=== PATIENT | female | born 1990 | race Caucasian/White ===

== ENCOUNTER 2019-01-25 07:50 | Outpatient (CLI) | payer OTHER | END 2019-01-25 07:54 | disposition home or self-care (01) | LOC: SONOGRAMA 07:50 | DX: E04.2 Nontoxic multinodular goiter (principal) ==

== ENCOUNTER 2019-05-11 11:34 | Outpatient (CLI) | payer OTHER | END 2019-05-11 11:36 | disposition home or self-care (01) | LOC: RAD 11:34 | DX: E04.1 Nontoxic single thyroid nodule (principal) ==

== ENCOUNTER → 2019-05-11 12:24 | Outpatient (CLI) | payer OTHER | END | disposition home or self-care (01) | LOC: LAB 12:24 | DX: E04.1 Nontoxic single thyroid nodule (principal) ==

== ENCOUNTER 2019-05-11 15:34 | Outpatient (CLI) | payer OTHER | END 2019-05-11 18:00 | disposition home or self-care (01) | LOC: LAB 15:34 | DX: J11.89 Influenza due to unidentified influenza virus with other manifestations (principal); J06.9 Acute upper respiratory infection, unspecified; N39.0 Urinary tract infection, site not specified ==

== ENCOUNTER → 2019-06-11 08:37 | Outpatient (CLI) | payer OTHER | END | disposition home or self-care (01) | LOC: LAB 08:37 | DX: D34 Benign neoplasm of thyroid gland (principal) ==